=== PATIENT | female | born 1955 | race Caucasian/White ===

== ENCOUNTER → 2016-10-28 | Outpatient (CLI) | payer OTHER ==
[~2016-10-28] MED LIST: ALPRAZOLAM0.25 MG PO; AMARYL2 MG PO; ASPIRIN81 M2 PO; B-121000 MC1 PO; DIGOX0.25 MG PO; METFORMIN HCL1000 M1 PO; PIOGLITAZONE30 MG PO; SERTRALINE HCL100 M1 PO; TRAMADOL-APAP1 EACH PO; TRIAMTERENE-HC1 EACH PO; ZETIA PO
--- NOTE | ~2016-10-28 | CR7 ---
[facility] A Service of [facility] RADIOLOGY TEXT RESULTS PATIENT: JACOBO CRESPO LOCATION: [facility] : 55 UNIT #: [id number] AGE: [address]: Gregg Leavitt MD SEX: F ORDER DR: [id number] [facility] [address] [place], [place] [address] [id number] O MR#: [id number] Acc #: [id number] NAME: JACOBO CRESPO : 1955 SEX: F STUDY DATE/TIME: 10/28/2016 11:42 UNIT: [facility] ROOM: STUDY DESCRIPTION: CR Abdomen Single AP View Attending Physician: Gregg Leavitt M.D. Referring Physician: Gregg Leavitt M.D. Ordering Physician: Gregg Leavitt M.D. Primary Care Physician: Chapin Ha M.D. MEDICAL IMAGING REPORT This report is preliminary unless electronic signature is present EXAM Abdominal radiograph INDICATIONS Renal calculi. Followup. Patient is status post lithotripsy 2 weeks ago. PROCEDURE Supine view of the abdomen COMPARISON 09/10/2016 FINDINGS Faint calculus lower pole left kidney measures approximately 8 mm very similar to the prior. There is a indistinct calculus in the lower pole of the right kidney that measures 1.2 cm, previously measuring up to 1.9 cm. No visible calculus along the course of the ureters. IMPRESSION Calculi lower pole of the right and left kidney stable on the left did not slightly decreased in size on the right. Dictated by... Jdaiel Tomas M.D. THIS IS AN ELECTRONICALLY VERIFIED REPORT Jadiel Tomas M.D. at 10/30/2016 7:19 AM EED/constantine TD: 10/29/2016 08:02 JOB #: [id number] [facility] A Service [facility] RADIOLOGY TEXT RESULTS PATIENT: [facility] CRESPO [id number] 55 UNIT #: [id number] AGE: [address]: Gregg Leavitt MD SEX: F ORDER DR: MEDICAL IMAGING REPORT Page 1 of 1 COPY
== END | disposition home or self-care (01) ==
LOC: CRAD 11:10
DX: N20.0 Calculus of kidney (principal)
CPT/HCPCS: 74000

== ENCOUNTER → 2017-02-25 | Outpatient (CLI) | payer OTHER ==
--- NOTE | ~2017-02-25 | US136 ---
[facility] A Service of [facility] RADIOLOGY TEXT RESULTS PATIENT: JACOBO CRESPO LOCATION: [facility] : 55 UNIT #: [id number] AGE: [address]: Preston Aviles MD SEX: F ORDER DR: [id number] [facility] [address] [place], [place] [address] [id number] O MR#: [id number] Acc #: [id number] NAME: JACOBO CRESPO : 1955 SEX: F STUDY DATE/TIME: 02/25/2017 14:51 UNIT: [facility] ROOM: STUDY DESCRIPTION: U/L Ext Art Study Ltd Bil Attending Physician: Preston Aviles M.D. Referring Physician: Preston Aviles M.D. Ordering Physician: Preston Aviles M.D. Primary Care Physician: Chapin Ha M.D. MEDICAL IMAGING REPORT This report is preliminary unless electronic signature is present EXAM Bilateral lower extremity HARRIS, 02/25/2017 REASON FOR EXAM Peripheral arterial disease. FINDINGS The right brachial pressure is 124, left is 120. Right dorsalis pedis pressure is 89 and posterior tibial is 97 for an HARRIS of 0.78 and a first toe pressure of 75 mmHg. Left dorsalis pedis pressure is 103 and posterior tibial 104 for an HARRIS of 0.84 and a first toe pressure of 75 mmHg. PVR waveform at the ankle and first toe level appear to be relatively intact and symmetric bilateral. Arterial waveforms of the dorsalis pedis and posterior tibial artery demonstrate biphasic waveform at the right posterior tibial artery and monophasic at the dorsalis pedis artery. There is biphasic waveform at the left dorsalis pedis artery and posterior tibial artery. IMPRESSION 1. Moderate arterial insufficiency of the right lower extremity with adequate perfusion of the first toe. 2. Mild arterial insufficiency of the left lower extremity with adequate perfusion of the first toe. Dictated by... Jef Patel M.D. THIS IS AN ELECTRONICALLY VERIFIED REPORT Jef Patel M.D. at 02/26/2017 10:40 AM FPN/psc [facility] A Service of [facility] & [facility] RADIOLOGY TEXT RESULTS PATIENT: JACOBO CRESPO LOCATION: [facility] : 55 UNIT #: [id number] AGE: [address]: Preston Aviles MD SEX: F ORDER DR: TD: 02/25/2017 22:02 JOB #: [id number] MEDICAL IMAGING REPORT Page 1 of 1 COPY
== END | disposition home or self-care (01) ==
LOC: CNIV 14:37
DX: I73.9 Peripheral vascular disease, unspecified (principal)
CPT/HCPCS: 93922